=== PATIENT | female | born 1955 | race Caucasian/White ===

== ENCOUNTER → 2021-01-22 | Day surgery (SDC) | payer MEDICARE, OTHER ==
[2021-01-13 16:14] VITALS: BMI 23.3
[~2021-01-22] MED LIST: LIDOCAINE HCL/PF 2% SDV 5ML VIAL ONE; PROPOFOL 20 ML ONE
[2021-01-22 11:40] VITALS: TEMP 97.7
[2021-01-22 12:20] VITALS: BP 103/62; PULSE 65
== END | disposition home or self-care (01) ==
LOC: FASU-ENDO 09:32
PROVIDERS: ATTEND Internal Medicine Gastroenterology
PROC: 0DJD8ZZ Inspection of Lower Intestinal Tract, Via Natural or Artificial Opening Endoscopic (ICD-10-PCS; principal; 2021-01-22 10:53)
DX: Z12.11 Encounter for screening for malignant neoplasm of colon (principal); Z80.0 Family history of malignant neoplasm of digestive organs; K64.1 Second degree hemorrhoids; K57.30 Diverticulosis of large intestine without perforation or abscess without bleeding